=== PATIENT | male | born 1935 | race Two or more races ===

== ENCOUNTER 2018-05-20 08:20 | Outpatient (CLI) | payer MEDICARE, MEDICAID ==
[~2018-05-20 08:20] MED LIST: AMLO-94 PO; ASPI-10 PO; ATOR-2 PO; BACL10TA PO; CELE-193 PO; DOCU250C4 PO; DULO20CA50 PO; FAMO20TA8 PO; FLO0.4C PO; HUM7525 SQ; HYDR-565 PO; IBUP-2264 PO; MULT1TAB74 PO; OMEG1CAP2 PO; OXYC-658 PO; PIOG45TA5 PO; SITA50TA PO; VALS160T2 PO
[2018-05-20] MEDS ORDERED: TEMA30CA PO (09:48)
== END 2018-05-20 11:46 | disposition home or self-care (01) ==
LOC: WOUND CARE 08:20 → EDSTATUS 09:00 → WOUND CARE 11:46
PROVIDERS: ATTEND Surgery
DX: L97.821 Non-pressure chronic ulcer of other part of left lower leg limited to breakdown of skin (principal); I87.2 Venous insufficiency (chronic) (peripheral); Z79.899 Other long term (current) drug therapy; Z98.890 Other specified postprocedural states
CPT/HCPCS: 29581; 82948; 93971; A6441

== ENCOUNTER 2018-05-27 09:21 | Outpatient (CLI) | payer MEDICARE, MEDICAID ==
[~2018-05-27 09:21] MED LIST changes: -AMLO-94 PO; -BACL10TA PO; -CELE-193 PO; -DULO20CA50 PO; -FAMO20TA8 PO; -FLO0.4C PO; -HYDR-565 PO; -OXYC-658 PO; -SITA50TA PO; +TEMA30CA PO; -VALS160T2 PO
== END 2018-05-27 10:30 | disposition home or self-care (01) ==
LOC: WOUND CARE 09:21 → EDSTATUS 09:30 → WOUND CARE 10:30
PROVIDERS: ATTEND Surgery
DX: L97.821 Non-pressure chronic ulcer of other part of left lower leg limited to breakdown of skin (principal); I83.12 Varicose veins of left lower extremity with inflammation; Z79.899 Other long term (current) drug therapy; Z98.890 Other specified postprocedural states
CPT/HCPCS: 36416; 82948; 99215